=== PATIENT | male | born 1995 | race Caucasian/White ===

== ENCOUNTER 2018-04-02 16:11 | Emergency (ER) | payer BC, SELFPAY ==
[2018-04-02 16:20] VITALS: BP 126/77; PULSE 74; RESP 16; TEMP 37.1; O2SAT 100
--- NOTE | 2018-04-02 16:35 | W.ED.GENAD ---
Discharge Plan Disposition Patient Disposition: HOME Condition: Stable Discharge Details Chief Complaint: Orthopedic Clinical Impression: Contusion of right shoulder Primary Care Provider: None,None ED Provider: Yemi Deluna Home Meds and New Rx's Prescriptions: No Action No Known Home Meds RF: 0 Discharge Instructions Instructions: Contusion in Adults (ED) Additional Instructions: if pain continues in a week see your primary care provider you can take 1000mg tylenol and 600mg ibuprofen every 6 hours for pain as needed Medical Decision Making 23 yo male with no chronic med problems comes in with pain over the right ac joint. He was playing [employer] earlier and hit the fall with his right shoulder, no head trauma or loc or vomit. Has pain over ac joint, does have full rom of the shoulder, no pain along sternoclavicular joint. Suspsect ac joint seperation vs sprain but will xray to eval for fx xray negative on my read, could have mild ac joint seperation. I offered sling but he declined. Advised f/u with pcp if pain continues and return precautions given Differential Diagnosis sprain, strain, ac seperation Imaging Data Radiologic Study: Attestation: I personally reviewed and interpreted this imaging study as follows: Imaging: X-Ray My impression: no acute findings HPI General Mode of arrival: ambulatory. Date/Time Provider Initiated Documentation: 04/02/18 16:29. Limitations to Documentation: no limitations. Information obtained by: patient. History of Present Illness 23 year old M presents to the emergency department with the chief complaint of right shoulder pain, described as moderate, with intensity rated at 5. Quality is described as aching, and is localized to the right and upper extremity. Patient reports no radiation. Patient started experiencing this hour(s) (1) and it has been constant. Rest improves symptom(s), Movement worsens symptoms . Patient notes no other symptoms.. Patient did receive the following treatments prior to arrival, none Related Data Home Medications Medication Instructions Recorded Confirmed Unknown [No Known Home Meds] 04/02/18 04/02/18 Allergies Allergy/AdvReac Type Severity Reaction Status Date / Time No Known Allergies Allergy Unverified 04/02/18 16:25 General Stated Complaint: Orthopedic WINSTON: 4 Review of Systems Review of Systems All systems reviewed & are unremarkable except as noted in HPI and below Constitutional Denies chills, Denies fever(s) and Denies weakness Cardiovascular Denies chest pain and Denies dyspnea Respiratory Denies dyspnea Gastrointestinal Denies vomiting Genitourinary Denies dysuria Neurologic Denies weakness Psychiatric Denies depression [facility] Social History Smoking/Tobacco Use Status: Never Exam Const General: no acute distress Orientation: alert HENMT Head: normal to inspection Ears: external ears normal General nose exam: external nose normal Mouth: moist mucous membranes Eyes General: appearance normal, both eyes and all related structures Neck Neck: normal visual inspection Resp Effort & Inspection: normal respiratory effort and able to speak in complete sentences Cardio Rate: regular rate Skin General skin exam: no rashes or lesions noted Neuro General: alert and oriented x3 Extrem General: normal to inspection Psych Mental Status: mental status grossly normal Course Vital Signs Temperature 37.1 C 04/02/18 16:20 Pulse 74 04/02/18 16:20 Respiratory Rate 16 04/02/18 16:20 Blood Pressure 126/77 04/02/18 16:20 Pulse Oximetry 100 04/02/18 16:20 Temperature 37.1 C 04/02/18 16:20 Temperature Source Skin 04/02/18 16:20 Pulse 74 04/02/18 16:20 Respiratory Rate 16 04/02/18 16:20 Respiratory Effort 04/02/18 16:23 Blood Pressure 126/77 04/02/18 16:20 Pulse Oximetry 100 04/02/18 16:20 Oxygen Delivery Method Room Air 04/02/18 16:20 Oxygen Flow Rate 0 04/02/18 16:20 Pain Level 2 04/02/18 16:23
--- NOTE | 2018-04-02 16:41 | ED.GENADUL_ITS ---
Discharge Plan Disposition Patient Disposition: HOME Condition: Stable Discharge Details Chief Complaint: Orthopedic Clinical Impression: Contusion of right shoulder Primary Care Provider: None,None ED Provider: Yemi Deluna Home Meds and New Rx's Prescriptions: No Action No Known Home Meds RF: 0 Discharge Instructions Instructions: Contusion in Adults (ED) Additional Instructions: if pain continues in a week see your primary care provider you can take 1000mg tylenol and 600mg ibuprofen every 6 hours for pain as needed Medical Decision Making 23 yo male with no chronic med problems comes in with pain over the right ac joint. He was playing [employer] earlier and hit the fall with his right shoulder, no head trauma or loc or vomit. Has pain over ac joint, does have full rom of the shoulder, no pain along sternoclavicular joint. Suspsect ac joint seperation vs sprain but will xray to eval for fx xray negative on my read, could have mild ac joint seperation. I offered sling but he declined. Advised f/u with pcp if pain continues and return precautions given Differential Diagnosis sprain, strain, ac seperation Imaging Data Radiologic Study: Attestation: I personally reviewed and interpreted this imaging study as follows: Imaging: X-Ray My impression: no acute findings HPI General Mode of arrival: ambulatory . Date/Time Provider Initiated Documentation: 04/02/18 16:29 . Limitations to Documentation: no limitations . Information obtained by: patient . History of Present Illness 23 year old M presents to the emergency department with the chief complaint of right shoulder pain, described as moderate, with intensity rated at 5. Quality is described as aching, and is localized to the right and upper extremity. Patient reports no radiation. Patient started experiencing this hour(s) (1) and it has been constant. Rest improves symptom(s), Movement worsens symptoms . Patient notes no other symptoms.. Patient did receive the following treatments prior to arrival, none Related Data Home Medications Medication Instructions Recorded Confirmed Unknown [No Known Home Meds] 04/02/18 04/02/18 Allergies Allergy/AdvReac Type Severity Reaction Status Date / Time No Known Allergies Allergy Unverified 04/02/18 16:25 General Stated Complaint: Orthopedic WINSTON: 4 Review of Systems Review of Systems All systems reviewed & are unremarkable except as noted in HPI and below Constitutional Denies chills, Denies fever(s) and Denies weakness Cardiovascular Denies chest pain and Denies dyspnea Respiratory Denies dyspnea Gastrointestinal Denies vomiting Genitourinary Denies dysuria Neurologic Denies weakness Psychiatric Denies depression [facility] Social History Smoking/Tobacco Use Status: Never Exam Const General: no acute distress Orientation: alert HENMT Head: normal to inspection Ears: external ears normal General nose exam: external nose normal Mouth: moist mucous membranes Eyes General: appearance normal, both eyes and all related structures Neck Neck: normal visual inspection Resp Effort & Inspection: normal respiratory effort and able to speak in complete sentences Cardio Rate: regular rate Skin General skin exam: no rashes or lesions noted Neuro General: alert and oriented x3 Extrem General: normal to inspection Psych Mental Status: mental status grossly normal Course Vital Signs Temperature 37.1 C 04/02/18 16:20 Pulse 74 04/02/18 16:20 Respiratory Rate 16 04/02/18 16:20 Blood Pressure 126/77 04/02/18 16:20 Pulse Oximetry 100 04/02/18 16:20 Temperature 37.1 C 04/02/18 16:20 Temperature Source Skin 04/02/18 16:20 Pulse 74 04/02/18 16:20 Respiratory Rate 16 04/02/18 16:20 Respiratory Effort 04/02/18 16:23 Blood Pressure 126/77 04/02/18 16:20 Pulse Oximetry 100 04/02/18 16:20 Oxygen Delivery Method Room Air 04/02/18 16:20 Oxygen Flow Rate 0 04/02/18 16:20 Pain Level 2 04/02/18 16:23
--- NOTE | 2018-04-02 16:49 | DI.RAD_ITS ---
SYMPTOM/DIAGNOSIS: PAIN, S/P RUNNING INTO WALL RIGHT SHOULDER: There is no evidence of a fracture or dislocation.
--- NOTE | 2018-04-02 17:18 | DI.VRAD_ITS ---
EXAM: XR Right Shoulder Complete, 2 or More Views EXAM DATE/TIME: 04/02/2018 4:35 PM CLINICAL HISTORY: 23 years old, male; Pain; Shoulder; Right TECHNIQUE: XR Right shoulder complete 2 or more views. COMPARISON: No relevant prior studies available. FINDINGS: Bones/joints: Normal. There is no evidence of acute fracture.There is no evidence of malalignment or dislocation. Soft tissues: Normal. IMPRESSION: No acute findings. Dictated and Authenticated by: Natalya Adam MD. Ordering:GLADYS Bragg MD
== END 2018-04-02 17:29 | disposition home or self-care (01) ==
PROVIDERS: Emergency Provider Emergency Medicine
DX: S40.011A Contusion of right shoulder, initial encounter (principal); W22.01XA Walked into wall, initial encounter
CPT/HCPCS: 99283; 73030; 99282